=== PATIENT | male | born 1990 | race African-American/Black ===

== ENCOUNTER 2017-02-14 19:28 | Emergency (ER) | payer SELFPAY ==
[~2017-02-14] VITALS: Ht 180.3 cm; Wt 72.6 kg
[2017-02-14 19:55] VITALS: BP 128/72
[2017-02-14 21:00] LABS: Basophils # (auto) 0 uL; Basophils % (auto) 0.7 % (0.0-2.0); Eosinophils # (auto) 0 uL; Eosinophils % (auto) 0.3 % (0.0-7.0); Hematocrit 47.5 % (41.0-53.0); Hemoglobin 15.8 g/dL (13.5-17.5); Lymphocytes # (auto) 2.6 uL; Mean Corpuscular Hemoglobin 31.3 pg (28.0-32.0); Mean Corpuscular Hgb Conc. 33.4 g/dL (32.0-36.0); Mean Corpuscular Volume 93.9 fL (80.0-100.0); Mean Platelet Volume 7.8 fL (7.4-10.4); Monocytes # (auto) 0.8 uL; Monocytes % (auto) 10.8 % (0.0-12.0); Neutrophils # (auto) 3.7 uL; Neutrophils % (auto) 52.2 % (37.0-80.0); Platelet Count (auto) 302 10^3/uL (140-450); Red Cell Distribution Width 13.9 % (11.6-16.0); White Blood Cell 7.1 10^3/uL (4.4-10.8)
== END 2017-02-14 21:14 | disposition left against medical advice (07) ==
LOC: ER 19:36
DX: M79.89 Other specified soft tissue disorders (principal); W57.XXXA Bitten or stung by nonvenomous insect and other nonvenomous arthropods, initial encounter; Y93.89 Activity, other specified; Y99.8 Other external cause status; Y92.89 Other specified places as the place of occurrence of the external cause
CPT/HCPCS: 36415; 85025

== ENCOUNTER 2017-02-15 09:40 | Emergency (ER) | payer MEDICAID ==
[~2017-02-15] VITALS: Ht 177.8 cm; Wt 68.0 kg
[2017-02-15 09:44] VITALS: BP 140/56
[2017-02-15] MEDS ORDERED: TETANUS-DIPTH-ACEL PERTUSSIS 0.5ML SYRG IM ONE (10:30)
[2017-02-15] MEDS ORDERED: cefTRIAXone SOD 1,000 MG VL IM ONE (10:30)
== END 2017-02-15 11:03 | disposition home or self-care (01) ==
LOC: ER 09:40
DX: S41.152A Open bite of left upper arm, initial encounter (principal); W50.3XXA Accidental bite by another person, initial encounter; Y93.89 Activity, other specified; Y92.89 Other specified places as the place of occurrence of the external cause; Y99.8 Other external cause status
CPT/HCPCS: 90471; 90715; 96372; 99284; J0696

== ENCOUNTER 2017-04-14 12:48 | Emergency (ER) | payer MEDICAID ==
[~2017-04-14] VITALS: Ht 180.3 cm; Wt 71.7 kg
[2017-04-14] MEDS ORDERED: KETOROLAC TROMETH 60MG/2ML VIAL IM ONE (13:45)
[2017-04-14 15:58] VITALS: BP 141/81
== END 2017-04-14 16:38 | disposition home or self-care (01) ==
LOC: ER 12:49
DX: S82.144A Nondisplaced bicondylar fracture of right tibia, initial encounter for closed fracture (principal); W01.0XXA Fall on same level from slipping, tripping and stumbling without subsequent striking against object, initial encounter; Y93.01 Activity, walking, marching and hiking; Y99.8 Other external cause status; Y92.89 Other specified places as the place of occurrence of the external cause
CPT/HCPCS: 29505; 73562; 73700; 93971; 96372; 99284; J1885

== ENCOUNTER 2024-11-24 18:05 | Emergency (ER) | payer MEDICAID, OTHER ==
[~2024-11-24] VITALS: Ht 180.3 cm; Wt 69.8 kg
[2024-11-24 19:25] VITALS: BP 126/76; PULSE 98; RESP 16; TEMP 98.7; O2SAT 97
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
[2024-11-24] MEDS ORDERED: CYCL-837 PO (20:57)
== END 2024-11-24 22:54 | disposition home or self-care (01) ==
LOC: ER 18:05
DX: S16.1XXA Strain of muscle, fascia and tendon at neck level, initial encounter (principal); S09.90XA Unspecified injury of head, initial encounter; V89.2XXA Person injured in unspecified motor-vehicle accident, traffic, initial encounter; Y93.89 Activity, other specified; Y92.410 Unspecified street and highway as the place of occurrence of the external cause; Y99.8 Other external cause status
CPT/HCPCS: 70450